=== PATIENT | male | born 1955 | race Caucasian/White ===

== ENCOUNTER 2020-11-16 20:57 | Emergency (ER) | payer OTHER, MEDICARE ==
[2020-11-16 21:19] LABS: BASOPHIL 0.6 % (0-2); EOSINOPHIL 3.7 % (0-7); HCT 42.9 % (42.0-52.0); HGB 14.5 g/dl (13.2-18.0); LYMPHOCYTE 25.3 % (15-48); MCH 30.7 pg (25.0-31.0); MCHC 33.8 g/dL (32.0-36.0); MCV 90.7 fL (78.0-100.0); MONOCYTE 12.1 % (0-12); MPV 9.7 fL (6.0-9.5); NEUTROPHIL 58.2 % (41-80); NRBC 0; PLT 245 K/uL (150-400); RBC 4.73 M/uL (4.70-6.00); RDW 12.3 % (11.5-14.0); WBC 7.1 K/uL (4.0-10.5)
[2020-11-16 21:28] LABS: INR 1.01 (0.9-1.2); PROTHROMBIN TIME 12.6 SECONDS (11.4-13.6); PTT 32.3 SECONDS (22.2-34.7)
[2020-11-16 21:37] LABS: ALBUMIN 3.9 g/dL (3.4-5.0); BILIRUBIN - TOTAL 0.6 mg/dL (0.2-1.0); BUN/CREAT RATIO (CALC) 19.3 RATIO; CREATININE 0.88 mg/dL (0.67-1.17); GLOBULIN (CALCULATION) 3.6 g/dL; POTASSIUM 3.4 mmol/L (3.5-5.1); TOTAL PROTEIN 7.5 g/dL (6.4-8.2)
== END 2020-11-17 04:25 | disposition left against medical advice (07) ==
LOC: FER 20:57
PROVIDERS: Emergency Medicine
DX: R07.89 Other chest pain (principal); R10.9 Unspecified abdominal pain; I10 Essential (primary) hypertension; E78.5 Hyperlipidemia, unspecified; Z79.899 Other long term (current) drug therapy
CPT/HCPCS: 36415; 71045; 71275; 80053; 83690; 84484; 85025; 85610; 85730; 87339; 93005; J1170; J1885; J2405; Q9967

== ENCOUNTER 2021-01-17 02:55 | Day surgery (SDCO) | payer OTHER, MEDICARE ==
[~2021-01-17] VITALS: Ht 167.6 cm; Wt 71.3 kg
[2021-01-17 06:29] LABS: BASOPHIL 0.1 % (0-2); EOSINOPHIL 0 % (0-7); HCT 45.5 % (42.0-52.0); HGB 15.1 g/dl (13.2-18.0); MCH 29.8 pg (25.0-31.0); MCHC 33.2 g/dL (32.0-36.0); MCV 89.7 fL (78.0-100.0); MONOCYTE 5.2 % (0-12); MPV 10.3 fL (6.0-9.5); NEUTROPHIL 87.3 % (41-80); NRBC 0; PLT 249 K/uL (150-400); RBC 5.07 M/uL (4.70-6.00); WBC 11.1 K/uL (4.0-10.5)
[2021-01-17 07:50] LABS: ALBUMIN 3.9 g/dL (3.4-5.0); BILIRUBIN - TOTAL 0.9 mg/dL (0.2-1.0); BUN/CREAT RATIO (CALC) 18.8 RATIO; CREATININE 0.69 mg/dL (0.67-1.17); GLOBULIN (CALCULATION) 3.5 g/dL; POTASSIUM 3.6 mmol/L (3.5-5.1); TOTAL PROTEIN 7.4 g/dL (6.4-8.2)
[2021-01-17 08:20] LABS: BILIRUBIN 1+ mg/dL (NEGATIVE); BLOOD NEGATIVE Ery/uL (NEGATIVE); CLARITY CLEAR (CLEAR); COLOR YELLOW (YELLOW); GLUCOSE (U) NORMAL (NORMAL); LEUKOCYTES NEGATIVE Leu/uL (NEGATIVE); NITRITE NEGATIVE (NEGATIVE); PROTEIN 1+ mg/dL (NEGATIVE); SPECIFIC GRAVITY >=1.030 (1.001-1.030); UROBILINOGEN 0.2 mg/dL (0.2-1.0); pH 5.5 (5.0-9.0)
[2021-01-17 08:26] LABS: BACTERIA TRACE; MUCOUS TRACE; SQUAMOUS EPITHELIAL CELLS RARE; URINARY RBC RARE; URINARY WBC RARE
[2021-01-17] MEDS ORDERED: LANSOPRAZOLE30 MG PO (13:57)
[2021-01-17] MEDS ORDERED: GABAPENTIN600 MG PO (14:04)
[2021-01-17] MEDS ORDERED: NORCO 5/3251 EACH PO (14:09)
[2021-01-17] MEDS ORDERED: AMLODIPINE BESY10 MG PO (14:11)
[2021-01-17] MEDS ORDERED: ATORVASTATIN CA20 MG PO (14:12)
[2021-01-18 06:08] LABS: BASOPHIL 0.1 % (0-2); EOSINOPHIL 0.1 % (0-7); HCT 40.2 % (42.0-52.0); HGB 13.3 g/dl (13.2-18.0); LYMPHOCYTE 12.1 % (15-48); MCH 29.6 pg (25.0-31.0); MCHC 33.1 g/dL (32.0-36.0); MCV 89.5 fL (78.0-100.0); MONOCYTE 9.8 % (0-12); MPV 9.9 fL (6.0-9.5); NEUTROPHIL 77.6 % (41-80); NRBC 0; PLT 238 K/uL (150-400); RBC 4.49 M/uL (4.70-6.00); WBC 9.4 K/uL (4.0-10.5)
[2021-01-18 06:40] LABS: BUN/CREAT RATIO (CALC) 15.7 RATIO; CREATININE 0.7 mg/dL (0.67-1.17); POTASSIUM 3.4 mmol/L (3.5-5.1)
[2021-01-19] MEDS ORDERED: COLACE100 MG PO (10:40)
[2021-01-19] MEDS ORDERED: SENOKOT8.6 MG PO (10:40)
== END 2021-01-19 10:57 | disposition home or self-care (01) ==
LOC: FER 02:55 → FMS 09:15
PROVIDERS: Emergency Medicine Emergency Medical Services; ADMIT Internal Medicine
DX: K56.699 Other intestinal obstruction unspecified as to partial versus complete obstruction (principal); K22.8 Other specified diseases of esophagus; K44.9 Diaphragmatic hernia without obstruction or gangrene; K21.9 Gastro-esophageal reflux disease without esophagitis; K57.30 Diverticulosis of large intestine without perforation or abscess without bleeding; K63.89 Other specified diseases of intestine; K59.00 Constipation, unspecified; I10 Essential (primary) hypertension; M54.9 Dorsalgia, unspecified; G89.29 Other chronic pain; Z20.822 Contact with and (suspected) exposure to COVID-19; Z90.89 Acquired absence of other organs; Z79.899 Other long term (current) drug therapy
CPT/HCPCS: 36415; 74019; 74270; 80048; 80053; 81001; 83605; 83690; 83735; 84145; 85025; 94010; G0378; J1170; J2270; J2405; J2543; J7030; Q9967; U0002